=== PATIENT | male | born 1985 | race Caucasian/White ===

== ENCOUNTER 2020-12-05 09:44 | Emergency (ER) | payer OTHER ==
[2020-12-05 09:49] VITALS: BMI 33.0
[2020-12-05] MEDS ORDERED: ACETAMINOPHEN 500 MG TABLET (FP) PO ONE (10:20)
[2020-12-05] MEDS ORDERED: KETOROLAC TROMETHAMINE 30 MG/1 ML VIAL IM ONE (10:20)
[2020-12-05] MEDS ORDERED: ACETAMINOPHEN 325 MG TABLET (FP) ONE (10:26)
[2020-12-05] MEDS ORDERED: KETOROLAC TROMETHAMINE 30 MG/1 ML VIAL ONE (10:26)
[2020-12-05] MEDS ORDERED: LACTATED RINGERS SOLUTION 1000 ML INFUS.BAG IV ONE (10:26)
[2020-12-05] MEDS ORDERED: HYDROmorphone HCL CARPU-JECT 2 MG/1 ML DISP.SYRIN IVPUSH ONE ×3 (10:47→11:24)
[2020-12-05] MEDS ORDERED: HYDROmorphone HCl 2 MG/ML VIAL ONE ×2 (10:49→11:03)
[2020-12-05 10:51] LABS: BASO % 0.2 % (0-2.0); EOS % 0.4 % (0-4.5); HEMATOCRIT 46.9 % (35.4-49); HEMOGLOBIN 15.8 GM/dL (11.7-16.9); LYMPH % 20.7 % (8-40); MCH 29.6 pg (25.7-33.7); MCHC 33.7 g/dl (32.0-35.9); MEAN CELL VOLUME 87.9 fl (80-96); MONO % 5.5 % (3.8-10.2); NEUT % 73.2 % (42.8-82.8); PLATELET COUNT 316 K/MM3 (134-434); RBC 5.33 M/mm3 (4.00-5.60); RDW 14.3 % (11.9-15.9); WHITE BLOOD COUNT 12.5 K/mm3 (4.0-10.0)
[2020-12-05 11:15] LABS: ALBUMIN 4.2 g/dl (3.4-5.0); CALCIUM 9.1 mg/dL (8.5-10.1)
[2020-12-05 11:18] LABS: CREATININE 1.3 mg/dL (0.55-1.3)
[2020-12-05 11:20] LABS: BILIRUBIN,TOTAL 0.3 mg/dL (0.2-1); TOT PROT 7.8 g/dl (6.4-8.2)
[2020-12-05] MEDS ORDERED: SODIUM CHLORIDE 1,000 ML IV STA (11:24)
[2020-12-05] MEDS ORDERED: morphine CARPU-JECT 4 MG/1 ML DISP.SYRIN IVPUSH ONE (11:27)
[2020-12-05] MEDS ORDERED: MORPHINE SULFATE 2 MG/ML VIAL ONE (11:28)
[2020-12-05] MEDS ORDERED: TAMSULOSIN HCL 0.4 MG CAP PO ONE (13:12)
[2020-12-05] MEDS ORDERED: TAMSULOSIN HCL 0.4 MG CAP ONE (13:28)
[2020-12-05 14:12] VITALS: TEMP 98.6
[2020-12-05 15:18] LABS: EPI CELLS 9 /uL (0-25.1); HYALINE CASTS 0 /uL (0-3.1); URINE APPEARANCE CLEAR; URINE BACTERIA 273 /uL (0-1359); URINE BILIRUBIN NEGATIVE (NEGATIVE); URINE COLOR YELLOW; URINE GLUCOSE (UA) NEGATIVE (NEGATIVE); URINE KETONE TRACE (NEGATIVE); URINE LEUK ESTERASE NEGATIVE (NEGATIVE); URINE NITRITE NEGATIVE (NEGATIVE); URINE PROTEIN TRACE (NEGATIVE); URINE RBC 169 /uL (0-23.9); URINE UROBILINOGEN 0.2 mg/dL (0.2-1.0); URINE WBC 4 /uL (0-25.8)
[2020-12-05 15:27] VITALS: BP 116/73; PULSE 90
[2020-12-05] MEDS ORDERED: NAPROXEN 500 MG TABLET PO ONE (15:46)
[2020-12-05] MEDS ORDERED: NAPROXEN 500 MG TABLET ONE (15:49)
== END 2020-12-05 16:12 | disposition home or self-care (01) ==
LOC: JER 09:44
PROC: 3E033NZ Introduction of Analgesics, Hypnotics, Sedatives into Peripheral Vein, Percutaneous Approach (ICD-10-PCS; principal; 2020-12-05)
PROC: 3E033NZ Introduction of Analgesics, Hypnotics, Sedatives into Peripheral Vein, Percutaneous Approach (ICD-10-PCS; 2020-12-05)
PROC: 3E0233Z Introduction of Anti-inflammatory into Muscle, Percutaneous Approach (ICD-10-PCS; 2020-12-05)
PROC: 3E033NZ Introduction of Analgesics, Hypnotics, Sedatives into Peripheral Vein, Percutaneous Approach (ICD-10-PCS; 2020-12-05)
PROC: 3E0337Z Introduction of Electrolytic and Water Balance Substance into Peripheral Vein, Percutaneous Approach (ICD-10-PCS; 2020-12-05)
DX: R10.9 Unspecified abdominal pain (principal); N21.0 Calculus in bladder; N13.39 Other hydronephrosis
CPT/HCPCS: 36415; 74176-TC; 80053; 81003; 85025; 87086; 99284-25